=== PATIENT | female | born 1995 | race Caucasian/White ===

== ENCOUNTER 2024-07-17 18:02 | Emergency (ER) | payer MEDICAID, SELFPAY ==
[2024-07-17 18:47] VITALS: BP 118/73; PULSE 94; RESP 18; TEMP 37.8; O2SAT 97; BMI 23.8
--- NOTE | 2024-07-17 18:55 | EDNOTE_ITS ---
ED Dental RME/HPI General Chief complaint: Dental/Oral/Throat Stated complaint: SORE THROAT X3 DAYS Time Seen by Provider: 07/17/24 18:08 Source: patient, RN notes reviewed and old records reviewed Arrival date/time: 07/17/24 18:02 Mode of arrival: ambulatory Limitations: no limitations RME / HPI RME / HPI Narrative: 28yof presents to ED for fever, congestion, cough, sore throat x 3 days. Multiple sick contacts at home with similar symptoms, reports +flu exposure. No shortness of breath, chest pain, N/V or dizziness reported. Tylenol last taken at 1100 this morning with mild relief. Related Data Home Medications ?Medication ?Instructions ?Recorded ?Confirmed vitamins-iron fumarate 27 1 tab PO QDAY #0 tabs 12/11/16 09/18/18 mg iron-folic acid 0.8 mg tablet ( Vitamin) Previous Rx's ?Medication ?Instructions ?Recorded ibuprofen 800 mg tablet 800 mg PO TID PRN pain #30 tabs 09/20/18 ibuprofen 600 mg tablet 600 mg PO Q6H #30 tabs 06/02/23 benzonatate 200 mg capsule 200 mg PO TID PRN cough #30 caps 07/17/24 dextromethorphan-guaifenesin ER 60 1 tab PO BID PRN congestion/cough 07/17/24 mg-1,200 mg tab,extend #20 tabs release,12hr (Mucinex DM) ibuprofen 600 mg tablet 600 mg PO Q6H PRN pain #30 tabs 07/17/24 Allergies Allergy/AdvReac Type Severity Reaction Status Date / Time No Known Allergies Allergy Verified 09/19/18 11:33 Review of Systems Review of Systems Systems Reviewed: All systems reviewed, normal except as documented Constitutional Constitutional: Reports chills and Reports fever(s) ENT Ears, Nose, Mouth, and Throat: Denies dizziness, Reports nasal congestion and Reports sore throat Cardiovascular Cardiovascular: Denies chest pain and Denies dyspnea Respiratory Respiratory: Reports cough and Denies dyspnea Gastrointestinal Gastrointestinal: Denies nausea and Denies vomiting Musculoskeletal Musculoskeletal: Reports myalgias Neurologic Neurologic: Denies dizziness Past Medical History Surgical History OTHER SURGICAL HX: denies pshx Social History SMOKING STATUS: Never smoker SUBSTANCE USE: does not use ALCOHOL: Never Past Medical History Comments PMH COMMENT: denies pmhx ED Exam General Limitations: Present no limitations General appearance: Present alert and in no apparent distress Head Head exam: Present atraumatic and normocephalic Eye Eye exam: Present normal appearance, PERRL and EOMI ENT ENT exam: Present normal oropharynx, TM's normal bilaterally and other (Mild UAC, mild pharyngeal erythema.) Neck Neck exam: Present normal inspection and full ROM; Absent meningismus Chest Chest inspection: Present normal inspection and symmetric chest wall rise Respiratory Respiratory exam: Present normal lung sounds bilaterally and other (No wheezing, rales or rhonchi); Absent respiratory distress Cardiovascular Cardiovascular exam: Present regular rate and normal rhythm Extremities Exam Extremities exam: Present normal inspection and full ROM Neurological Exam Neurological exam: Present alert and oriented X3 Psychiatric Psychiatric exam: Present normal affect and normal mood Skin Skin exam: Present warm, dry, intact and normal color Course Quality Measures none Orders Category Date Time Status Bedside COVID-19 Antigen Test NOW Care 07/17/24 18:53 Completed Bedside Influenza A&B Antigen Test NOW Care 07/17/24 18:53 Completed Strep A Rapid Stat Lab 07/17/24 19:00 Completed Ibuprofen Tab [Motrin Tab] Med 07/17/24 18:53 Discontinued 600 mg PO X1 ONE Vital Signs Vital signs: Vital Signs Temperature 100.0 F 07/17/24 18:47 Pulse Rate 94 07/17/24 18:47 Respiratory Rate 18 07/17/24 18:47 Blood Pressure 118/73 07/17/24 18:47 Pulse Oximetry (%) 97 07/17/24 18:47 Oxygen Delivery Method Room Air 07/17/24 18:47 Dental / Oral MDM Narrative MDM Narrative:: 28yof presents to ED for fever, congestion, cough, sore throat x 3 days. Multiple sick contacts at home with similar symptoms, reports +flu exposure. No shortness of breath, chest pain, N/V or dizziness reported. Tylenol last taken at 1100 this morning with mild relief. Patient is nontoxic appearing, vitals are stable. No evidence of airway compromise or respiratory distress. Suspect viral etiology of symptoms. Encourage rest, fluids, symptomatic treatment, fever management prn. Stable for discharge, RTED precautions given. Patient data External records reviewed:: [facility] previous records (06/02/2023 ED visit for strep) Clinical information provided by:: patient Social determinants that could affect healthcare access:: other (specify) (Poor access to healthcare, unemployed) Patient has the following chronic illnesses:: None How is presenting disease/condition affected by chronic disease/condition?: no chronic disease Evaluation data The following diagnostics were reviewed and interpreted by me:: lab results Lab and/or radiology exams considered but not ordered:: CXR: Lungs clear, no respiratory distress or hypoxia Interpretation Summary: Negative strep, COVID, flu Medications / Prescriptions Medications or Prescriptions considered but not ordered:: No antibiotics recommended at this time Medication administrations:: Medication Administration History Discontinued Medications Ibuprofen (Ibuprofen Tab 600 Mg Tablet) 600 mg PO X1 ONE Stop: 07/17/24 18:54 Last Admin: 07/17/24 19:33 Dose: 600 mg Documented By: Above medication administered in ED Consultations Consultation(s) initiated? (list below): No Diagnosis Dental Differential Diagnosis: other (COVID, flu, strep, viral illness, URI) Most likely diagnosis given after review of the tests above:: URI Admission Indicated Admission indicated?: not indicated Admission Request Was there a request for admission?: No Disposition Plan Disposition Plan: Discharge Discharge Attestation Discharge Attestation: The patient and all family members were given an opportunity to ask questions and understood the discharge instructions. Discharge instructions specifically effects, indications for sooner follow up or return to the emergency department, and the expected course of current diagnosis. Patient condition: Stable Discharge Plan Plan Patient Disposition: HOME (Self Care) Patient condition on transfer: Stable Prescriptions/Referrals Prescriptions/Med Rec: New ibuprofen 600 mg tablet 600 mg PO Q6H PRN (Reason: pain) Qty: 30 0RF dextromethorphan-guaifenesin [Mucinex DM] 60-1,200 mg tablet extended release 12 hr 1 tab PO BID PRN (Reason: congestion/cough) Qty: 20 0RF benzonatate 200 mg capsule 200 mg PO TID PRN (Reason: cough) Qty: 30 0RF No Action Vitamin 27 mg iron- 0.8 mg Tablet 1 tab PO QDAY Qty: 0 ibuprofen 800 mg tablet 800 mg PO TID PRN (Reason: pain) Qty: 30 0RF ibuprofen 600 mg tablet 600 mg PO Q6H Qty: 30 0RF Referrals: Ken Demarco MD [Primary Care Provider] - In 1 week Problem List Clinical Impression: Viral pharyngitis, URI (upper respiratory infection) Patient/Caregiver Discharge Instructions Education Materials: Self-Care for Sore Throats, ED URI, Viral, No Abx (Adult) Print Language: Guinean Stand Alone Forms: [employer]i Award Info., Patient Portal Info Letter PA/DIGITAL CONTENT MANAGER Supervising Physician PA/DIGITAL CONTENT MANAGER Supervising Physician: Alex
[2024-07-17 19:33] VITALS: TEMP 37.8
[2024-07-17] MEDS: IBUPROFEN TAB 600 MG TABLET PO (19:33)
[2024-07-17 20:12] LABS: Strep A Rapid Negative (Negative)
== END 2024-07-17 20:53 | disposition home or self-care (01) ==
PROVIDERS: Physician Assistant; Emergency Provider Emergency Medicine; PCP Family Medicine
DX: J02.8 Acute pharyngitis due to other specified organisms (principal); B97.89 Other viral agents as the cause of diseases classified elsewhere
CPT/HCPCS: 87400; 87651; 87811; 99283; A9270